=== PATIENT | female | born 1955 | race Caucasian/White ===

== ENCOUNTER 2016-12-15 12:36 | Day surgery (SDC) | payer OTHER ==
[~2016-12-15] VITALS: Ht 177.8 cm; Wt 136.1 kg
[~2016-12-15 12:36] MED LIST: AMOX/K CLAV875 M1 PO; ASPIRIN LOW DOS81 M2 PO; BENZONATATE200 MG PO; BLOOD GLUCOSE TEST S XX; CLINDAMYCIN300 M1 PO; DIAZEPAM5 M1 PO; FLEXERIL OR; FLEXERIL PO; FLUARIX QUADRIV1 INJ IM; FLUZONE SPLT1 M1 IM; GLIPIZIDE5 M2 PO; GLIPIZIDE5 MG PO; KAYEXALATE15 GM/60 M PO; LEVAQUIN500 MG PO; LEVOTHYROXIN150 MC1 PO; LISINOPRIL2.5 MG PO; LOPRESSOR12.5 MG PO; LORTAB 5 OR; MELOXICAM7.5 MG PO; METFORMIN500 MG PO; METOPROL TAR25 MG PO; METOPROLOL25 MG PO; MUPIROCIN2 % EX; NAPROSYN500 MG PO; NEURONTIN300 MG PO; NO HOME MEDS; NYQUI2 PO; OMEPRAZOLE20 MG PO; OXY1; PREDNISONE20 MG PO; PREVACID30 M2 PO; PRILOSEC40 MG PO; PROAIR HFA IN; PROTONIX40 M2 PO; RELION ULTIMA B1 KIT XX; SYMBICORT1 AE1 IN; TESSALON PER100 MG PO; TORADOL30 MG/VIAL IJ; TYLENOL 500MG TAB PO; TYLOPHEN500 MG PO; ULTRAM50 M1 OR; VALIUM5 MG PO; VISTARIL50 MG PO
[2016-12-15 15:28] VITALS: BP 119/61
== END 2016-12-15 15:20 | disposition home or self-care (01) | DRG 379 ==
LOC: ENDO 12:36 → ORM 15:30 → ENDO 16:00 → ORM 16:00 → ENDO 16:10
PROVIDERS: ATTEND Internal Medicine Gastroenterology
PROC: 0DBN8ZX Excision of Sigmoid Colon, Via Natural or Artificial Opening Endoscopic, Diagnostic (ICD-10-PCS; principal; 2016-12-15)
PROC: 0DBP8ZX Excision of Rectum, Via Natural or Artificial Opening Endoscopic, Diagnostic (ICD-10-PCS; 2016-12-15)
DX: K62.5 Hemorrhage of anus and rectum (principal); Z99.81 Dependence on supplemental oxygen; K21.9 Gastro-esophageal reflux disease without esophagitis; K64.4 Residual hemorrhoidal skin tags; K57.30 Diverticulosis of large intestine without perforation or abscess without bleeding; K64.8 Other hemorrhoids; K63.5 Polyp of colon; K62.1 Rectal polyp; F17.210 Nicotine dependence, cigarettes, uncomplicated; E78.00 Pure hypercholesterolemia, unspecified; J44.9 Chronic obstructive pulmonary disease, unspecified; E66.9 Obesity, unspecified; I10 Essential (primary) hypertension; E11.9 Type 2 diabetes mellitus without complications; Z86.73 Personal history of transient ischemic attack (TIA), and cerebral infarction without residual deficits

== ENCOUNTER 2017-12-12 15:10 | Emergency (ER) | payer OTHER ==
[~2017-12-12] VITALS: Ht 177.8 cm; Wt 110.0 kg
[2017-12-12 15:37] LABS: HEMATOCRIT 44.8 % (37.0-47.0); HEMOGLOBIN 12.9 g/dl (12.0-16.0); IMMATURE GRANULOCYTES 0.5 % (0.0-1.0); MEAN CELL VOLUME 87.2 fL CALC (80.0-100.0); MEAN CORPUSCULAR HGB 25.1 pG CALC (26.0-32.0); MEAN CORPUSCULAR HGB CONC 28.8 g/L CALC (32.0-36.0); NEUT# 15.54 thou/uL (2.00-7.15); RED BLOOD COUNT 5.14 mill/uL (4.20-5.60); RED CELL DISTRI WIDTH 15.7 % (11.5-15.5)
[2017-12-12 15:50] LABS: BUN 41 mg/dL (7-17); BUN/CREATININE RATIO 67 (12-20 (CALC)); CARBON DIOXIDE 39 mmol/l (22-30); CHLORIDE 93 mmol/l (95-108); CPK 510 u/l (30-165); CREATININE 0.6 mg/dL (0.5-1.0); GFR > 60 ML/MIN (>=60 (CALC)); GFR FOR AFR.AMER. > 60 ML/MIN (>=60 (CALC)); SODIUM 142 mmol/l (137-146)
[2017-12-12 15:55] LABS: ANION GAP 14 (6-22 (CALC)); POTASSIUM 3.7 mmol/l (3.5-5.1)
--- NOTE | 2017-12-12 18:50 | NUR ---
PATIIENT RECEIVED ON VENTILATOR WITH THE FOLLOWING SETTING. AC 20, 500 VT, 50% FIO2 AND PEEP OF 5. INTUBATED WITH A # 8 ETT, AT 23 CM OF THE LIPS. SPO2 94%, HEART RATE 99 RATE OF 20. WILL CINTINUE TO MONITOR THE PATIENT.
[2017-12-12 20:07] VITALS: BP 98/55
[2017-12-12 20:09] LABS: URINE BLOOD DIPSTICK NEGATIVE (NEGATIVE); URINE COLOR YELLOW; URINE GLUCOSE - DIPSTICK NEGATIVE (NEGATIVE); URINE KETONE NEGATIVE (NEGATIVE); URINE LEUK ESTERASE NEGATIVE (NEGATIVE); URINE NITRITE - DIPSTICK NEGATIVE (Negative); URINE PH 5.5 (4.5-8.0); URINE PROTEIN - DIPSTICK NEGATIVE (NEG-TRACE); URINE SPECIFIC GRAVITY 1.025; URINE UROBILINOGEN - DIPSTICK 0.2 E.U./dL (0.2)
[2017-12-12 20:11] LABS: URINE BILIRUBIN - DIPSTICK NEGATIVE (NEGATIVE); URINE CLARITY CLOUDY
== END 2017-12-12 20:08 | disposition short-term general hospital (02) | DRG 281 ==
LOC: ED 15:10
PROVIDERS: Family Medicine
PROC: 0T9B70Z Drainage of Bladder with Drainage Device, Via Natural or Artificial Opening (ICD-10-PCS; principal; 2017-12-12)
PROC: 5A1935Z Respiratory Ventilation, Less than 24 Consecutive Hours (ICD-10-PCS; 2017-12-12)
PROC: 02HV33Z Insertion of Infusion Device into Superior Vena Cava, Percutaneous Approach (ICD-10-PCS; 2017-12-12)
PROC: 0BH17EZ Insertion of Endotracheal Airway into Trachea, Via Natural or Artificial Opening (ICD-10-PCS; 2017-12-12)
DX: I21.4 Non-ST elevation (NSTEMI) myocardial infarction (principal); J44.1 Chronic obstructive pulmonary disease with (acute) exacerbation; R41.82 Altered mental status, unspecified; I10 Essential (primary) hypertension; F17.210 Nicotine dependence, cigarettes, uncomplicated; Z99.81 Dependence on supplemental oxygen

== ENCOUNTER 2017-12-29 12:36 | Emergency (ER) | payer OTHER ==
[~2017-12-29] VITALS: Ht 177.8 cm; Wt 127.3 kg
[2017-12-29 13:13] LABS: HEMOGLOBIN 11.3 g/dl (12.0-16.0); IMMATURE GRANULOCYTES 0.5 % (0.0-1.0); MEAN CELL VOLUME 86.8 fL CALC (80.0-100.0); MEAN CORPUSCULAR HGB 25.3 pG CALC (26.0-32.0); MEAN CORPUSCULAR HGB CONC 29.2 g/L CALC (32.0-36.0); NEUT# 5.94 thou/uL (2.00-7.15); RED BLOOD COUNT 4.46 mill/uL (4.20-5.60); RED CELL DISTRI WIDTH 17.2 % (11.5-15.5)
[2017-12-29 13:17] LABS: HEMATOCRIT 38.7 % (37.0-47.0)
[2017-12-29 13:33] LABS: ALBUMIN 3.5 g/dL (3.2-5.0); ALKALINE PHOSPHATASE 76 u/l (38-126); ANION GAP 11 (6-22 (CALC)); BILIRUBIN, TOTAL 0.5 mg/dL (0.0-1.4); BUN 9 mg/dL (7-17); BUN/CREATININE RATIO 15 (12-20 (CALC)); CARBON DIOXIDE 39 mmol/l (22-30); CHLORIDE 94 mmol/l (95-108); CREATININE 0.6 mg/dL (0.5-1.0); GFR > 60 ML/MIN (>=60 (CALC)); GFR FOR AFR.AMER. > 60 ML/MIN (>=60 (CALC)); LIPASE 11 u/l (23-300); POTASSIUM 3.2 mmol/l (3.5-5.1); SGOT/AST 16 u/l (14-36); SGPT/ALT 37 u/l (9-52); SODIUM 141 mmol/l (137-146); TOTAL PROTEIN 6.7 g/dL (6.3-8.2)
[2017-12-29 13:35] LABS: PROTHROMBIN TIME 10.7 SECONDS (9.0-12.5)
[2017-12-29] MEDS ORDERED: GABAPENTIN100 MG PO (14:02)
[2017-12-29] MEDS ORDERED: PANTOPRAZOLE SO40 MG PO (14:05)
[2017-12-29] MEDS ORDERED: PROTONIX40 MG PO (14:29)
[2017-12-29 15:04] VITALS: BP 139/72
== END 2017-12-29 15:06 | disposition home or self-care (01) | DRG 392 ==
LOC: ED 12:36
PROVIDERS: Emergency Medicine
DX: R10.13 Epigastric pain (principal); E11.9 Type 2 diabetes mellitus without complications; I10 Essential (primary) hypertension; J44.9 Chronic obstructive pulmonary disease, unspecified; F17.210 Nicotine dependence, cigarettes, uncomplicated; Z99.81 Dependence on supplemental oxygen; R07.9 Chest pain, unspecified

== ENCOUNTER 2018-01-04 11:52 | Inpatient (IN) | payer OTHER ==
[2018-01-04] VITALS (9 sets, daily range): BP systolic 109–126; BP diastolic 63–76
[~2018-01-04] VITALS: Ht 175.3 cm; Wt 114.0 kg
[~2018-01-04 11:52] MED LIST changes: +GABAPENTIN100 MG PO; +PANTOPRAZOLE SO40 MG PO; +PROTONIX40 MG PO
[2018-01-04 12:22] LABS: HEMATOCRIT 38.1 % (37.0-47.0); HEMOGLOBIN 11.2 g/dl (12.0-16.0); IMMATURE GRANULOCYTES 2.6 % (0.0-1.0); MEAN CELL VOLUME 87.8 fL CALC (80.0-100.0); MEAN CORPUSCULAR HGB 25.8 pG CALC (26.0-32.0); MEAN CORPUSCULAR HGB CONC 29.4 g/L CALC (32.0-36.0); NEUT# 10.11 thou/uL (2.00-7.15); RED BLOOD COUNT 4.34 mill/uL (4.20-5.60); RED CELL DISTRI WIDTH 19.9 % (11.5-15.5)
[2018-01-04 12:28] LABS: ALBUMIN 3.5 g/dL (3.2-5.0); ALKALINE PHOSPHATASE 101 u/l (38-126); ANION GAP 14 (6-22 (CALC)); BILIRUBIN, TOTAL 0.8 mg/dL (0.0-1.4); BUN 22 mg/dL (7-17); BUN/CREATININE RATIO 29 (12-20 (CALC)); CARBON DIOXIDE 39 mmol/l (22-30); CHLORIDE 90 mmol/l (95-108); CREATININE 0.8 mg/dL (0.5-1.0); GFR > 60 ML/MIN (>=60 (CALC)); GFR FOR AFR.AMER. > 60 ML/MIN (>=60 (CALC)); POTASSIUM 3.8 mmol/l (3.5-5.1); SGPT/ALT 332 u/l (9-52); SODIUM 139 mmol/l (137-146); TOTAL PROTEIN 6.5 g/dL (6.3-8.2)
[2018-01-04 12:31] LABS: SGOT/AST 488 u/l (14-36)
[2018-01-04 13:54] LABS: URINE BLOOD DIPSTICK TRACE-INTACT (NEGATIVE); URINE COLOR YELLOW; URINE GLUCOSE - DIPSTICK 250 mg/dL (NEGATIVE); URINE KETONE NEGATIVE (NEGATIVE); URINE LEUK ESTERASE NEGATIVE (NEGATIVE); URINE NITRITE - DIPSTICK NEGATIVE (Negative); URINE PROTEIN - DIPSTICK 100 mg/dL (NEG-TRACE); URINE SPECIFIC GRAVITY >=1.030
[2018-01-04 13:55] LABS: URINE BILIRUBIN - DIPSTICK SMALL (NEGATIVE); URINE CLARITY CLEAR; URINE EPITHELIAL CELLS MODERATE EPI/hpf (0-FEW); URINE MUCUS FEW hpf (NONE-FEW); URINE RBC 0-2 RBC/hpf (0-5)
[2018-01-04] MEDS ORDERED: METO25TAB PO (14:32)
[2018-01-04] MEDS ORDERED: GABAPENTIN100 MG PO (14:33)
[2018-01-04] MEDS ORDERED: LISINOPRIL2.5 MG PO (14:33)
[2018-01-04] MEDS ORDERED: METFORMIN500 MG PO (14:33)
[2018-01-04] MEDS ORDERED: GLIPIZIDE5 MG PO ×2 (14:34)
[2018-01-04] MEDS ORDERED: PROAIR HFA108 MCG/AC (14:34)
[2018-01-04] MEDS ORDERED: SYMBICORT1 AE1 IN (14:35)
[2018-01-05] VITALS (9 sets, daily range): BP systolic 109–132; BP diastolic 60–77
[2018-01-05 05:14] LABS: HEMATOCRIT 36.9 % (37.0-47.0); HEMOGLOBIN 10.8 g/dl (12.0-16.0); IMMATURE GRANULOCYTES 2.9 % (0.0-1.0); MEAN CELL VOLUME 88.7 fL CALC (80.0-100.0); MEAN CORPUSCULAR HGB CONC 29.3 g/L CALC (32.0-36.0); NEUT# 10.96 thou/uL (2.00-7.15); RED BLOOD COUNT 4.16 mill/uL (4.20-5.60); RED CELL DISTRI WIDTH 19.9 % (11.5-15.5)
[2018-01-05 05:33] LABS: ALBUMIN 3.2 g/dL (3.2-5.0); ALKALINE PHOSPHATASE 94 u/l (38-126); BILIRUBIN, TOTAL 0.9 mg/dL (0.0-1.4); BUN 23 mg/dL (7-17); BUN/CREATININE RATIO 31 (12-20 (CALC)); CHLORIDE 88 mmol/l (95-108); CREATININE 0.7 mg/dL (0.5-1.0); GFR > 60 ML/MIN (>=60 (CALC)); GFR FOR AFR.AMER. > 60 ML/MIN (>=60 (CALC)); SGOT/AST 165 u/l (14-36); SGPT/ALT 245 u/l (9-52); SODIUM 139 mmol/l (137-146); TOTAL PROTEIN 6.1 g/dL (6.3-8.2)
[2018-01-05 05:38] LABS: ANION GAP 16 (6-22 (CALC)); CARBON DIOXIDE 39 mmol/l (22-30)
[2018-01-06 00:10] VITALS: BP 133/77
[2018-01-06 04:30] VITALS: BP 137/82; BP 154/86
[2018-01-06 05:16] LABS: ALBUMIN 3.2 g/dL (3.2-5.0); ALKALINE PHOSPHATASE 88 u/l (38-126); BILIRUBIN, TOTAL 0.4 mg/dL (0.0-1.4); BUN 27 mg/dL (7-17); BUN/CREATININE RATIO 37 (12-20 (CALC)); CHLORIDE 85 mmol/l (95-108); CREATININE 0.7 mg/dL (0.5-1.0); GFR > 60 ML/MIN (>=60 (CALC)); GFR FOR AFR.AMER. > 60 ML/MIN (>=60 (CALC)); MAGNESIUM 2.2 mg/dL (1.6-2.3); POTASSIUM 3.6 mmol/l (3.5-5.1); SGOT/AST 68 u/l (14-36); SGPT/ALT 215 u/l (9-52); SODIUM 136 mmol/l (137-146); TOTAL PROTEIN 6.1 g/dL (6.3-8.2)
[2018-01-06 05:22] LABS: ANION GAP 16 (6-22 (CALC)); CARBON DIOXIDE 39 mmol/l (22-30)
[2018-01-06 05:57] LABS: HEMATOCRIT 35.1 % (37.0-47.0); HEMOGLOBIN 10.5 g/dl (12.0-16.0); MEAN CELL VOLUME 87.5 fL CALC (80.0-100.0); MEAN CORPUSCULAR HGB 26.2 pG CALC (26.0-32.0); MEAN CORPUSCULAR HGB CONC 29.9 g/L CALC (32.0-36.0); RED BLOOD COUNT 4.01 mill/uL (4.20-5.60); RED CELL DISTRI WIDTH 19.6 % (11.5-15.5)
[2018-01-06 08:11] VITALS: BP 124/64
[2018-01-06 11:17] VITALS: BP 127/65
[2018-01-06 15:47] VITALS: BP 121/73
[2018-01-06 19:00] VITALS: BP 114/67
[2018-01-07 00:04] VITALS: BP 133/74
[2018-01-07 04:57] VITALS: BP 133/76
[2018-01-07 05:12] LABS: HEMATOCRIT 34.3 % (37.0-47.0); HEMOGLOBIN 10.4 g/dl (12.0-16.0); IMMATURE GRANULOCYTES 0.8 % (0.0-1.0); MEAN CELL VOLUME 86.6 fL CALC (80.0-100.0); MEAN CORPUSCULAR HGB 26.3 pG CALC (26.0-32.0); MEAN CORPUSCULAR HGB CONC 30.3 g/L CALC (32.0-36.0); NEUT# 7.73 thou/uL (2.00-7.15); RED BLOOD COUNT 3.96 mill/uL (4.20-5.60); RED CELL DISTRI WIDTH 19.7 % (11.5-15.5)
[2018-01-07 05:24] LABS: ALBUMIN 3.1 g/dL (3.2-5.0); ALKALINE PHOSPHATASE 81 u/l (38-126); ANION GAP 12 (6-22 (CALC)); BILIRUBIN, TOTAL 0.8 mg/dL (0.0-1.4); BUN 26 mg/dL (7-17); BUN/CREATININE RATIO 37 (12-20 (CALC)); CARBON DIOXIDE 39 mmol/l (22-30); CHLORIDE 87 mmol/l (95-108); CREATININE 0.7 mg/dL (0.5-1.0); GFR > 60 ML/MIN (>=60 (CALC)); GFR FOR AFR.AMER. > 60 ML/MIN (>=60 (CALC)); MAGNESIUM 2.2 mg/dL (1.6-2.3); POTASSIUM 3.9 mmol/l (3.5-5.1); SGOT/AST 56 u/l (14-36); SGPT/ALT 190 u/l (9-52); SODIUM 134 mmol/l (137-146)
[2018-01-07 08:25] VITALS: BP 147/83
[2018-01-07] MEDS ORDERED: PREDNISONE10 MG PO (10:59)
[2018-01-07] MEDS ORDERED: ZPAK PO (10:59)
== END 2018-01-07 12:20 | disposition home or self-care (01) | DRG 189 ==
LOC: ED 11:52 → ED-I 15:40 → ED 15:56 → ICU 15:57 → MS2 01-05 12:52
PROVIDERS: Family Medicine; ADMIT Internal Medicine; ATTEND Internal Medicine
PROC: 5A09357 Assistance with Respiratory Ventilation, Less than 24 Consecutive Hours, Continuous Positive Airway Pressure (ICD-10-PCS; principal; 2018-01-04)
DX: J96.21 Acute and chronic respiratory failure with hypoxia (principal); E87.3 Alkalosis; E11.49 Type 2 diabetes mellitus with other diabetic neurological complication; E11.65 Type 2 diabetes mellitus with hyperglycemia; J44.1 Chronic obstructive pulmonary disease with (acute) exacerbation; J96.22 Acute and chronic respiratory failure with hypercapnia; Z99.81 Dependence on supplemental oxygen; E66.01 Morbid (severe) obesity due to excess calories; I10 Essential (primary) hypertension; F17.210 Nicotine dependence, cigarettes, uncomplicated; E03.9 Hypothyroidism, unspecified; G89.4 Chronic pain syndrome; E86.9 Volume depletion, unspecified; R74.8 Abnormal levels of other serum enzymes; T38.0X5A Adverse effect of glucocorticoids and synthetic analogues, initial encounter; G47.30 Sleep apnea, unspecified; Z91.19 Patient's noncompliance with other medical treatment and regimen; Z68.37 Body mass index [BMI] 37.0-37.9, adult; Z79.84 Long term (current) use of oral hypoglycemic drugs

== ENCOUNTER 2018-01-18 18:14 | Observation (INO) | payer OTHER ==
[~2018-01-18] VITALS: Ht 175.3 cm; Wt 127.0 kg
[~2018-01-18 18:14] MED LIST changes: +METO25TAB PO; +PREDNISONE10 MG PO; +PROAIR HFA108 MCG/AC; +ZPAK PO
--- NOTE | 2018-01-18 18:14 | NUR ---
PT TO ROOM 10 VIA EMS.
[2018-01-18 18:44] LABS: IMMATURE GRANULOCYTES 1.6 % (0.0-1.0); MEAN CELL VOLUME 87.9 fL CALC (80.0-100.0); MEAN CORPUSCULAR HGB CONC 29.6 g/L CALC (32.0-36.0); NEUT# 9.95 thou/uL (2.00-7.15); RED BLOOD COUNT 4.62 mill/uL (4.20-5.60); RED CELL DISTRI WIDTH 19.9 % (11.5-15.5)
[2018-01-18 18:46] LABS: HEMATOCRIT 40.6 % (37.0-47.0)
--- NOTE | 2018-01-18 18:50 | NUR ---
AALIYAH COMPLETED. IMPROVIDED AIRWAY. SATS 94 ON 3L/M VIA NC. RESP EVEN UNLABORED
[2018-01-18 18:54] LABS: ANION GAP 12 (6-22 (CALC)); BUN 12 mg/dL (7-17); BUN/CREATININE RATIO 28 (12-20 (CALC)); CARBON DIOXIDE 35 mmol/l (22-30); CHLORIDE 92 mmol/l (95-108); CREATININE 0.4 mg/dL (0.5-1.0); GFR > 60 ML/MIN (>=60 (CALC)); GFR FOR AFR.AMER. > 60 ML/MIN (>=60 (CALC)); POTASSIUM 4.2 mmol/l (3.5-5.1); SODIUM 135 mmol/l (137-146)
--- NOTE | 2018-01-18 19:09 | NUR ---
REPORT PROVIDED TO EASTON FRANCISCO.
--- NOTE | 2018-01-18 19:22 | NUR ---
IVF, STARTED PER MD ORDER.
--- NOTE | 2018-01-18 19:28 | NUR ---
MD IN ROOM TO DISCUSS CLINICAL FINDINGS WITH PT. AND ALSO MAKE HER AWARE OF ADMISSION, VERBALIZED UNDERSTANDING.
--- NOTE | 2018-01-18 19:53 | NUR ---
Admission Note Report Given to: TYLER MOORE Transported by: Wheelchair X Stretcher Transported with: X Nurse Transporter X Patent IV X O2 X Chain Mortiser Operator
--- NOTE | 2018-01-18 19:54 | NUR ---
[place]. [place] [facility] [place]
--- NOTE | 2018-01-18 20:00 | NUR ---
PT ARRIVED TO FLOOR VIA STRETCHER WITH ER STAFF. PT AMBULATED TO SCALE, THEN TO BED. VITAL SIGNS OBTAINED. PT ORIENTED TO ROOM AND CALL LIGHT SYSTEM. RESP EVEN AND UNLABORED WITH O2 IN PLACE. TELE IN PLACE. LUNGS CLEAR/ DIMINISHED BILAT. ABD SOFT, ACTIVE BOWEL SOUNDS. +2 EDEMA LEGS BILAT; PT ENCOURAGED TO ELEVATE. PEDAL PULSES PALPATED BILAT. IV RAC PATENT; NO REDNESS OR EDEMA NOTED. PT DENIES PAIN OR DISCOMFORT. SAFETY PRECAUTIONS REINFORCED; FREQUENT ROUNDS MADE. CALL LIGHT WITHIN REACH.
[2018-01-18 20:20] VITALS: BP 149/97
[2018-01-18 23:30] VITALS: BP 144/88
--- NOTE | 2018-01-19 | NUR ---
RESP EVEN AND UNLABORED WITH O2 IN PLACE. TELE IN PLACE. IV PATENT; NO REDNESS OR EDEMA NOTED. CALL LIGHT WITHIN REACH.
--- NOTE | 2018-01-19 04:02 | NUR ---
ASSESSMENT UNCHANGED; RESP EVEN AND UNLABORED WITH O2 IN PLACE. TELE IN PLACE. IV PATENT; NO REDNESS OR EDEMA NOTED. CALL LIGHT WITHIN REACH.
[2018-01-19 05:00] VITALS: BP 139/78
[2018-01-19 05:35] LABS: HEMOGLOBIN 12.4 g/dl (12.0-16.0); MEAN CELL VOLUME 89.4 fL CALC (80.0-100.0); MEAN CORPUSCULAR HGB 26.4 pG CALC (26.0-32.0); MEAN CORPUSCULAR HGB CONC 29.5 g/L CALC (32.0-36.0); RED BLOOD COUNT 4.7 mill/uL (4.20-5.60); RED CELL DISTRI WIDTH 19.3 % (11.5-15.5)
[2018-01-19 05:51] LABS: ANION GAP 15 (6-22 (CALC)); BUN 13 mg/dL (7-17); BUN/CREATININE RATIO 28 (12-20 (CALC)); CARBON DIOXIDE 33 mmol/l (22-30); CHLORIDE 96 mmol/l (95-108); CREATININE 0.5 mg/dL (0.5-1.0); GFR > 60 ML/MIN (>=60 (CALC)); GFR FOR AFR.AMER. > 60 ML/MIN (>=60 (CALC)); POTASSIUM 4.9 mmol/l (3.5-5.1); SODIUM 138 mmol/l (137-146)
--- NOTE | 2018-01-19 07:00 | NUR ---
BEDSIDE REPORT RECEIVED BY KARELY. PT IS RESTING IN BED WITH NO S/S OF DISTRESS NOTED. PT DENIES NEEDS AT THIS TIME. CALL LIGHT IN REACH.
[2018-01-19 07:26] VITALS: BP 122/77
--- NOTE | 2018-01-19 08:00 | NUR ---
PT IS SITTING IN THE SIDE OF THE BED. ASSESSMENT DONE TELE IN PLACE. LUNG SOUND CLEAR/DIMINISHED. O2 AT 3L/MIN VIA NC. SAFETY PRECAUTIONS REINFORCED AND CALL LIGHT IN REACH.
[2018-01-19 09:07] LABS: URINE BILIRUBIN - DIPSTICK NEGATIVE (NEGATIVE); URINE BLOOD DIPSTICK NEGATIVE (NEGATIVE); URINE COLOR YELLOW; URINE GLUCOSE - DIPSTICK >=1000 mg/dL (NEGATIVE); URINE KETONE TRACE mg/dL (NEGATIVE); URINE LEUK ESTERASE NEGATIVE (NEGATIVE); URINE NITRITE - DIPSTICK NEGATIVE (Negative); URINE PH 5.5 (4.5-8.0); URINE PROTEIN - DIPSTICK NEGATIVE (NEG-TRACE); URINE UROBILINOGEN - DIPSTICK 0.2 E.U./dL (0.2)
[2018-01-19 09:08] LABS: URINE CLARITY CLEAR
--- NOTE | 2018-01-19 10:53 | NUR ---
MEDICATED PT WITH LORTAB FOR PAIN SEE EMAR. PT DENIES ANY OTHER NEEDS AT THIS TIME. CALL LIGHT IN REACH.
--- NOTE | 2018-01-19 12:00 | NUR ---
PT IS EATING HER LUNCH WITH NO S/S OF DISTRESS NOTED. PT DENIES NEEDS AT THIS TIME. CALL LIGHT IN REACH.
[2018-01-19 12:35] VITALS: BP 94/58
--- NOTE | 2018-01-19 16:00 | NUR ---
PT IS RESTING IN BED WITH NO S/S OF DISTRESS NOTED. PT DENIES NEEDS AT THIS TIME. CALL LIGHT IN REACH.
[2018-01-19 16:19] VITALS: BP 110/71
--- NOTE | 2018-01-19 19:51 | NUR ---
PT RESTING IN BED WATCHING TV. PT DENIES ANY PAIN. RESP EVEN AND UNLABORED WITH O2 IN PLACE. TELE IN PLACE. LUNGS CLEAR/DIMINISHED BILAT. ABD SOFT; ACTIVE BOWEL SOUNDS. +2 EDEMA LEGS BILAT; PT ENCOURAGED TO ELEVATE. PEDAL PULSES PALPATED BILAT. IV RAC PATENT; NO REDNESS OR EDEMA NOTED. SAFETY PRECAUTIONS REINFORCED; FREQUENT ROUNDS MADE. CALL LIGHT WITHIN REACH.
[2018-01-19 20:05] VITALS: BP 124/71
--- NOTE | 2018-01-19 20:40 | NUR ---
ACCUCHECK DONE; ACCUCHECK READS "CRITICAL LEVEL". DR CARMONA NOTIFIED. NEW ORDERS; CHEM 7 STAT, 15 UNITS NOVOLOG X1 NOW. PT DENIES ANY PAIN OR DISCOMFORT. RESP EVEN AND UNLABORED WITH O2 IN PLACE. CALL LIGHT WITHIN REACH.
[2018-01-19 21:54] LABS: ANION GAP 17 (6-22 (CALC)); BUN 17 mg/dL (7-17); BUN/CREATININE RATIO 28 (12-20 (CALC)); CARBON DIOXIDE 27 mmol/l (22-30); CHLORIDE 93 mmol/l (95-108); CREATININE 0.6 mg/dL (0.5-1.0); GFR > 60 ML/MIN (>=60 (CALC)); GFR FOR AFR.AMER. > 60 ML/MIN (>=60 (CALC)); POTASSIUM 4.9 mmol/l (3.5-5.1); SODIUM 132 mmol/l (137-146)
--- NOTE | 2018-01-19 23:54 | NUR ---
ACCUCHECK; 359. PT RESTING IN BED, DENIES ANY ANY PAIN. RESP EVEN AND UNLABORED WITH O2 IN PLACE. IV PATENT; NO REDNESS OR EDEMA NOTED. TELE IN PLACE. CALL LIGHT WITHIN REACH.
[2018-01-19 23:55] VITALS: BP 113/69
--- NOTE | 2018-01-20 04:30 | NUR ---
ASSESSMENT UNCHANGED; RESP EVEN AND UNLABORED WITH O2 IN PLACE. TELE IN PALCE. IV PATENT; NO REDNESS OR EDEMA NOTED. CALL LIGHT WITHIN REACH.
[2018-01-20 05:10] VITALS: BP 122/81
[2018-01-20 05:16] LABS: ANION GAP 14 (6-22 (CALC)); BUN 15 mg/dL (7-17); BUN/CREATININE RATIO 28 (12-20 (CALC)); CARBON DIOXIDE 30 mmol/l (22-30); CHLORIDE 96 mmol/l (95-108); CREATININE 0.5 mg/dL (0.5-1.0); GFR > 60 ML/MIN (>=60 (CALC)); GFR FOR AFR.AMER. > 60 ML/MIN (>=60 (CALC)); POTASSIUM 4.9 mmol/l (3.5-5.1); SODIUM 135 mmol/l (137-146)
[2018-01-20 05:26] LABS: HEMATOCRIT 36.6 % (37.0-47.0); HEMOGLOBIN 10.7 g/dl (12.0-16.0); MEAN CELL VOLUME 90.4 fL CALC (80.0-100.0); MEAN CORPUSCULAR HGB 26.4 pG CALC (26.0-32.0); MEAN CORPUSCULAR HGB CONC 29.2 g/L CALC (32.0-36.0); RED BLOOD COUNT 4.05 mill/uL (4.20-5.60); RED CELL DISTRI WIDTH 19.6 % (11.5-15.5)
--- NOTE | 2018-01-20 07:00 | NUR ---
BEDSIDE REPORT RECEIVED BY KARELY. PT IS SLEEPING WITH NO S/S OF DISTRESS NOTED AND CALL LIGHT IN REACH.
[2018-01-20 07:23] VITALS: BP 125/77
--- NOTE | 2018-01-20 07:59 | NUR ---
ASSESSMENT DONE AND TELE IN PLACE. O2 AT 3L VIA NC. LUNG SOUND CLEAR/DIMINISHED. MEDICATED PT WITH LORTAB FOR PAIN SEE EMAR. SAFETY PRECAUTIONS REINFORCED AND CALL LIGHT IN REACH.
[2018-01-20] MEDS ORDERED: LEVAQUIN750 MG PO (10:56)
[2018-01-20] MEDS ORDERED: PREDNISONE10 MG PO (10:56)
[2018-01-20 11:48] VITALS: BP 107/57
--- NOTE | 2018-01-20 12:15 | NUR ---
Discharge instructions given. Patient verbalizes understanding of same.
--- NOTE | 2018-01-20 14:30 | NUR ---
Discharged in stable condition via Wheelchair to Home with staff. All belongings sent with pt.
== END 2018-01-20 14:30 | disposition home or self-care (01) | DRG 190 ==
LOC: ED 18:14 → ED-I 18:40 → ED 18:40 → ED-I 19:00 → ED 19:35 → MS2 19:36
PROVIDERS: Family Medicine; ADMIT Internal Medicine; ATTEND Internal Medicine
DX: J44.1 Chronic obstructive pulmonary disease with (acute) exacerbation (principal); J96.22 Acute and chronic respiratory failure with hypercapnia; J96.21 Acute and chronic respiratory failure with hypoxia; E11.49 Type 2 diabetes mellitus with other diabetic neurological complication; E87.2 Acidosis; Z99.81 Dependence on supplemental oxygen; I10 Essential (primary) hypertension; F17.210 Nicotine dependence, cigarettes, uncomplicated; G47.33 Obstructive sleep apnea (adult) (pediatric); F14.10 Cocaine abuse, uncomplicated; G89.4 Chronic pain syndrome; E11.65 Type 2 diabetes mellitus with hyperglycemia; E66.01 Morbid (severe) obesity due to excess calories; T38.0X5A Adverse effect of glucocorticoids and synthetic analogues, initial encounter; Z91.19 Patient's noncompliance with other medical treatment and regimen; Z79.84 Long term (current) use of oral hypoglycemic drugs
CPT/HCPCS: G0378

== ENCOUNTER 2018-02-08 08:00 | Inpatient (IN) | payer OTHER ==
[2018-02-08] VITALS (12 sets, daily range): BP systolic 127–150; BP diastolic 69–84
[~2018-02-08] VITALS: Ht 175.3 cm; Wt 112.5 kg
[~2018-02-08 08:00] MED LIST changes: +GABAPENTIN300 M2 PO; +GLIPIZIDE10 MG PO; +LEVAQUIN750 MG PO
--- NOTE | 2018-02-08 08:00 | NUR ---
PT TO ROOM VIA EMS STRETCHER ON NON REBREATHERM SAO2 100%.
--- NOTE | 2018-02-08 08:15 | NUR ---
IV ACCESS OBTAINED, R.T. AT BEDSIDE PLACING PT ON BIPAP
--- NOTE | 2018-02-08 08:32 | NUR ---
PT ON BIPAP R.T. AT BEDSIDE
--- NOTE | 2018-02-08 08:39 | NUR ---
ATTEMPTED TO RECONCILE MEDS PT DROWSY AND ANSWERS QUESTIONS INAPPROPRIATELY, WILL ATTEMPT TO CALL [facility] WHEN OPEN TO RECONCILE BASED ON REFILL INFORMATION.
--- NOTE | 2018-02-08 08:44 | NUR ---
AWARE OF SATS 87% WITH FiO2 AT 30%, R.T. CALLED
--- NOTE | 2018-02-08 08:59 | NUR ---
RT AT BEDSIDE BI PAP CHANGED TO 40% FiO2
[2018-02-08 09:04] LABS: IMMATURE GRANULOCYTES 3.3 % (0.0-1.0); MEAN CELL VOLUME 90.2 fL CALC (80.0-100.0); MEAN CORPUSCULAR HGB CONC 29.9 g/L CALC (32.0-36.0); NEUT# 10.2 thou/uL (2.00-7.15); RED BLOOD COUNT 4.78 mill/uL (4.20-5.60)
[2018-02-08 09:05] LABS: HEMATOCRIT 43.1 % (37.0-47.0); HEMOGLOBIN 12.9 g/dl (12.0-16.0)
[2018-02-08 09:24] LABS: ALBUMIN 3.8 g/dL (3.2-5.0); ALKALINE PHOSPHATASE 103 u/l (38-126); ANION GAP 16 (6-22 (CALC)); BILIRUBIN, TOTAL 0.5 mg/dL (0.0-1.4); BUN 14 mg/dL (7-17); BUN/CREATININE RATIO 29 (12-20 (CALC)); CARBON DIOXIDE 35 mmol/l (22-30); CHLORIDE 93 mmol/l (95-108); CREATININE 0.5 mg/dL (0.5-1.0); GFR > 60 ML/MIN (>=60 (CALC)); GFR FOR AFR.AMER. > 60 ML/MIN (>=60 (CALC)); POTASSIUM 4.9 mmol/l (3.5-5.1); SGOT/AST 17 u/l (14-36); SGPT/ALT 38 u/l (9-52); SODIUM 139 mmol/l (137-146); TOTAL PROTEIN 6.9 g/dL (6.3-8.2)
--- NOTE | 2018-02-08 10:41 | NUR ---
PT RESTING TOLERATING BI PAP W/O INCIDENT, CALL PURVIS WITHIN REACH
--- NOTE | 2018-02-08 11:24 | NUR ---
LASIX GIVEN ORDERED, BSC PLACED AT PT BEDSIDE
--- NOTE | 2018-02-08 11:46 | NUR ---
PT UP TO BSC WITH MOD/MAX ASSIST, TOLERATED WELL, CONTINENT OF 500 ML CELAR YELLOW URINE, MARIA T CARE PROVIDED PT HAS REDENED SCALY AREA TO COCCYX, WILL CONTINUE TO MONITOR.
--- NOTE | 2018-02-08 11:56 | NUR ---
PT CAME TO E.R. VIA EMS FOR COMPLAINTS OF SHORTNESS OF BREATH, ADMISSION ASSESSMENT COMPLETED SEE INTERVENTIONS, SKIN WARM AND DRY WITH SOME REDNESS/SCALINESS NOTED TO COCCYX, PT STATES SHE SITS A LOT AT HOME, INCONTINENT OF STOOL VIA EMS UPON ARRIVAL TO EMERGENCY ROOM THIS AM, IV ACCESS NOTED IN LEFT AC 20G WITH GOOD ASPIRAATE NOTED, PT HAS GENERALIZED EDEMA 1-2+ TO BILATERAL LE WITH SLIGHT REDNESS NOTED, PPPB, SOME EDEMA NOTED TO BUE R>L, ABD SOFT AND BS ACTIVE, SOME NAUSEA ON ARRIVAL TO ED BUT RESOLVED AT THIS TIME. TELE READIN ST RATE 100-120'S, B P STABLE AND PT AFEBRILE, LUNGS DIMINAHED SLIGHTLY COARSE IN BASES, BI PAP IN USE AT THIS TIME WITH 40% FiO2, SEE FLOWSHEET FOR COMPLETE SETTINGS, SAFETY MEASURES INTRODUCED, ALL MONITORING EQUIPMENT EXPLAINED PRIOR TO APPLICATION, CALL PURVIS WITHIN REACH.
--- NOTE | 2018-02-08 12:10 | NUR ---
PT OOB TO BSC WITH MOD ASSIST, CONTINENT OF CALER YELLOW URINE ASSISTED WITH MARIA T CARE AND BACK TO STRETCHER
--- NOTE | 2018-02-08 13:37 | NUR ---
PT DOZING, CONTINUES TO TOLERATE BI PAP, CALL PURVIS WITHIN REACH
--- NOTE | 2018-02-08 14:21 | NUR ---
PT REMAINS DOZING, CONTINUES TO TOLERATE BI PAP W/O INCIDENT,
--- NOTE | 2018-02-08 14:27 | NUR ---
PT OFF STRECTHER TO BSC, TOLERATES ACTIVITY WELL, CONTINENT OF CLEAR YELLOW URINE,. ASSISTED WITH MRAIA T CARE NAD BACK ON STRETCHER, CALL PURVIS WITHIN REACH
--- NOTE | 2018-02-08 15:13 | NUR ---
Admission Note Report Given to: LING SAGE NURSE THAT HAD PT IN ER Transported by: Wheelchair X Stretcher Transported with: X Nurse Transporter X Patent IV X O2 X Lead Warehouse Associate
--- NOTE | 2018-02-08 15:25 | NUR ---
female pt received to ICU bed 1 via wc accompained by volunteer and friends in stable condition; admission assessment completed at this time; pt sent per Dr Valero for CHF; alert and oriented; denies pain/ chest pain; denies palpitations/sob; pt denies n/v/diaphoresis; resp even and unlabored; lungs clear bilat; skin color wnl; ra; dry automotive electrician frequent cough noted; hr reg; strong pulses; no edema noted; paced/ underline sr-st on monitor; abd soft with bs present; no bm noted per keno writer; pt admits to voiding without complication; no urine to inspect at this time; plan of care/ meds/ orders explained; monitoring attachments explained and applied; pt oriented to bed and call light system; call light within reach; will continue to moniutor
--- NOTE | 2018-02-08 15:44 | NUR ---
PT ARRIVED TO ICU BED 1 WITH RT AND ON BIPAP. (ADMISSION ASSESS COMPLETED IN ER SEE NOTES IN ER RECORD) VIA STRECTHER, PT STOOD OFF STRETCHER AND TRASNFERRED TO BED WITH MOD ASSIST, TOLERATED ACTIVITY WELL, O2 PLACED AT 3L VIA NC HUMIDIFIED, PT IS ADMITTED SMOKER, AND WEARS O2 AT 3L AT HOME, EDUCATED REGARDING THE IMPORTANCE OF NOT SMOKING WHILE WEARING OXYGEN, PT NODS HEAD BUT DOES NOT RESPOND, PT HAS REDDENDED AREA TO COCCYX THAT IS BALNACHABLE AND DRY AND SCALY PT STATES IT ITCHES OCCASIONAL, WILL HAVE MD NOTE ON ROUNDS, OREINTED TO ROOM AND UNIT, ALL MONITORING EQUIPMENT EXPLAINED PRIOR TO APPLICATION, CALL PURVIS WITHIN REACH, WILL MONITOR CLOSELY
--- NOTE | 2018-02-08 16:15 | NUR ---
#22 started in lh x1 attempt; #22 started in lfa x1 attempt; labs obtained; iv's flushed and patent with good blood aspirate noted; medications explained; visitors x2 at bedside; call light within reach; will continue to monitor
--- NOTE | 2018-02-08 16:26 | NUR ---
pt with complaints of left sided chest pain; denies radiation; no n/v noted; no diaphoresis; paced on monitor; RT notified for EKG; Dr Delacruz notified of pt complaints/no additional orders received; will continue to monitor
--- NOTE | 2018-02-08 17:00 | NUR ---
up to bsc with staff assistance; pt with nausea/ no emesis noted; voiding clear yellow urine; iv's patent with dopamine and dobutamine gtt infusing as per orders/protocol; call light within reach; will continue to monitor
--- NOTE | 2018-02-08 17:30 | NUR ---
OOB TO BSC WITH MINIMAL ASSISTANCE, VOIDING 300ML CLEAR YELLOW URINE AND FORMED BROWN BM, MARIA T CARE PROVIDED THEN BACK TO BED. ACCUCHECK 304, 4UNITS OF NOVULOG INSULIN ADMINISTERED SQ, TOLERATED WELL. 1800ADA SHANNEN DIET PROVIDED FOR DINNER, EATING 100%. CALL LIGHT IN REACH. WILL CONTINUE TO MONITOR.
--- NOTE | 2018-02-08 18:25 | NUR ---
BIPAP APPLIED BY RT, DUE TO O2 SAT DOWN TO 84% ON 3L VIA NC. O2 SAT UP TO 91% WITH BIPAP FIO2 40%.
--- NOTE | 2018-02-08 21:48 | NUR ---
ACCUCHECK 450, DR. NORMAN NOTIFIED, NEW ORDER RECEIVED FOR ACCUCHECK AC/HS WITH HIGH DOSE SS. COVERED WITH 14UNITS OF NOVULOG PER SS, TOLERATED WELL.
[2018-02-08 22:02] LABS: URINE BILIRUBIN - DIPSTICK NEGATIVE (NEGATIVE); URINE BLOOD DIPSTICK NEGATIVE (NEGATIVE); URINE COLOR YELLOW; URINE GLUCOSE - DIPSTICK >=1000 mg/dL (NEGATIVE); URINE KETONE NEGATIVE (NEGATIVE); URINE LEUK ESTERASE TRACE (NEGATIVE); URINE NITRITE - DIPSTICK NEGATIVE (Negative); URINE PH 5.5 (4.5-8.0); URINE PROTEIN - DIPSTICK NEGATIVE (NEG-TRACE); URINE SPECIFIC GRAVITY <=1.005; URINE UROBILINOGEN - DIPSTICK 0.2 E.U./dL (0.2)
[2018-02-08 22:03] LABS: URINE CLARITY CLEAR
--- NOTE | 2018-02-08 23:00 | NUR ---
RESTING WITH EYES CLOSED, RESPIRATIONS EVEN AND UNLABORED ON BIPAP, FIO2 40%
[2018-02-09] VITALS (18 sets, daily range): BP systolic 110–140; BP diastolic 59–77
--- NOTE | 2018-02-09 01:30 | NUR ---
RESTING WITH EYES CLOSED, RESPIRATIONS EVEN AND UNLABORED ON BIPAP. O2 SAT 94%. CALL LIGHT IN REACH.
--- NOTE | 2018-02-09 04:40 | NUR ---
MORNING BLOODWORK DRAWN BY TECHNOLOGY DIRECTOR, TOLERATED WELL. BIPAP REMOVED, O2 @3L APPLIED, OOB TO BSC WITH MINIMAL ASSISTANCE, VOIDING 600ML CLOUDY YELLOW URINE, O2 SAT DOWN TO 87%, BACK TO BED, BIPAP REAPPLIED AT FIO2 40%, O2 SAT UP TO 94%. CALL LIGHT IN REACH.
[2018-02-09 05:11] LABS: ANION GAP 13 (6-22 (CALC)); BUN 22 mg/dL (7-17); BUN/CREATININE RATIO 37 (12-20 (CALC)); CARBON DIOXIDE 38 mmol/l (22-30); CHLORIDE 92 mmol/l (95-108); CREATININE 0.6 mg/dL (0.5-1.0); GFR > 60 ML/MIN (>=60 (CALC)); GFR FOR AFR.AMER. > 60 ML/MIN (>=60 (CALC)); MAGNESIUM 2.2 mg/dL (1.6-2.3); POTASSIUM 4.9 mmol/l (3.5-5.1); SODIUM 138 mmol/l (137-146)
[2018-02-09 05:20] LABS: HEMATOCRIT 39.2 % (37.0-47.0); HEMOGLOBIN 11.7 g/dl (12.0-16.0); MEAN CELL VOLUME 89.5 fL CALC (80.0-100.0); MEAN CORPUSCULAR HGB 26.7 pG CALC (26.0-32.0); MEAN CORPUSCULAR HGB CONC 29.8 g/L CALC (32.0-36.0); RED BLOOD COUNT 4.38 mill/uL (4.20-5.60)
--- NOTE | 2018-02-09 07:25 | NUR ---
pt resting in bed with eyes closed; easily aroused; offers no complaints; no distress noted; assessment completed at this time; pt alert and oriented; denies pain; denies sob; no n/v noted; resp even and unlabored; lungs clear/ diminished bases; skin color wnl; bipap at 16/6, rate 10, .40 FiO2; o2 sat 95%; pt converted to nc at 3l humidified/ rt informed; non food receiving clerk dry cough noted; hr reg; sr/st on monitor; strong pulses; 1+ edema noted to ble; abd soft/ distended with bs present; no bm noted per copy writer; no urine to inspect at this time; bsc; #20 in lac flushed and patent; no redness or edema noted at site; redness/discoloration noted to bilat shins; plan of care/ am meds explained; accucheck 355; call light within reach; will continue to monitor
--- NOTE | 2018-02-09 08:05 | NUR ---
awake; sitting on side of bed eating breakfast; no distress noted; o2 per nc; pt offers no complaints; st on monitor; call light within reach; will continue to monitor
--- NOTE | 2018-02-09 09:15 | NUR ---
Dr Davis at bedside to assess pt and discuss plan of care
--- NOTE | 2018-02-09 10:05 | NUR ---
awake in bed; offers no complaints; no distress noted; very talkative/ no sob noted; o2 per nc; st on monitor; call light within reach; will continue to monitor
--- NOTE | 2018-02-09 12:07 | NUR ---
pt awake in bed; offers no complaints; no distress noted; resp even and unlabored; iv intact; o2 per nc; o2 sat 93%; pt deny needs; st on monitor; call light within reach; will continue to monitor
--- NOTE | 2018-02-09 13:59 | NUR ---
resting in recliner with eyes closed; easily aroused; sr on monitor; o2 per nc; pt offers no complaints; call light within reach; will continue to monitor
--- NOTE | 2018-02-09 16:04 | NUR ---
awake in recliner; no distress noted; pt offers no complaints; iv intact; no redness or edema noted at site; sr on monitor; o2 per nc; call light within reach; will continue to monitor
--- NOTE | 2018-02-09 17:54 | NUR ---
awake in recliner; offers no complaints; iv intact; no redness or edema noted at site; st on monitor; o2 per nc; bed in lowest position; call light within reach
--- NOTE | 2018-02-09 20:00 | NUR ---
PT SITTING UP IN RECLINER AT BEDSIDE WATCHING TV. PT IS ALERT AND ORIENTED X3. PERRLA. RESP ARE EVEN AND UNLABORED. NO DISTRESS NOTED. LUNGS ARE CLEAR AND DIMINISHED IN THE BASES. O2 2L NC IN PLACE. HR REGULAR. SR TO ST ON MONITOR. PULSES PALPABLE THROUHGOUT. TRACE EDEMA TO BLE. BS ACTIVE. PT VOIDING VIA BSC. #20 LAC SALINE LOCKED. NO REDNESS OR EDEMA NOTED. CALL LIGHT IN REACH. WILL CONTINUE TO CLOSELY MONITOR.
--- NOTE | 2018-02-09 20:47 | NUR ---
DR NORMAN NOTIFIED OF BS 421. NEW ORDERS RECEIVED.
--- NOTE | 2018-02-09 22:00 | NUR ---
PT SITTING UP IN RECLINER AT BEDSIDE. RESP ARE EVEN AND UNLABORED. NO DISTRESS NOTED. PT REMAINS ON O2 3L NC. CALL LIGHT IN REACH. WILL CONTINUE TO MONITOR
--- NOTE | 2018-02-09 23:00 | NUR ---
PT ASSISTED BACK TO BED. CALL LIGHT IN REACH. WILL CONTINUE TO MONITOR
[2018-02-10] VITALS (12 sets, daily range): BP systolic 113–151; BP diastolic 61–79
--- NOTE | 2018-02-10 | NUR ---
PT RESTING IN BED WITH EYES CLOSED. RESP ARE EVEN AND UNLABORED. NO DISTRESS NOTED. PT REMAINS ON O2 3L NC. SATS REMAIN IN THE MID 90S. PT REMAINS SR TO ST ON MONITOR. CALL LIGHT IN REACH. WILL CONTINUE TO MONITOR
--- NOTE | 2018-02-10 02:00 | NUR ---
PT RESTING IN BED WITH EYES CLOSED. RESP ARE EVEN AND UNLABORED. NO DISTRESS NOTED. REMAINS ON O2 3L NC. REMAINS SR TO ST ON MONITOR. CALL LIGHT IN REACH. WILL CONTINUE TO MONITOR
--- NOTE | 2018-02-10 04:00 | NUR ---
PT RESTING IN BED WITH EYES CLOSED. RESP ARE EVEN AND UNLABORED. NO DISTRESS NOTED. PT REMAINES ON O2 3L NC. SR 90S ON MONITOR. CALL LIGHT IN REACH. WILL CONTINUE TO MONITOR
[2018-02-10 05:55] LABS: ANION GAP 17 (6-22 (CALC)); BUN 26 mg/dL (7-17); BUN/CREATININE RATIO 50 (12-20 (CALC)); CARBON DIOXIDE 32 mmol/l (22-30); CHLORIDE 90 mmol/l (95-108); CREATININE 0.5 mg/dL (0.5-1.0); GFR > 60 ML/MIN (>=60 (CALC)); GFR FOR AFR.AMER. > 60 ML/MIN (>=60 (CALC)); SODIUM 134 mmol/l (137-146)
[2018-02-10 05:56] LABS: POTASSIUM 5.3 mmol/l (3.5-5.1)
[2018-02-10 06:08] LABS: HEMATOCRIT 37.2 % (37.0-47.0); HEMOGLOBIN 11.2 g/dl (12.0-16.0); MEAN CELL VOLUME 88.6 fL CALC (80.0-100.0); MEAN CORPUSCULAR HGB 26.7 pG CALC (26.0-32.0); MEAN CORPUSCULAR HGB CONC 30.1 g/L CALC (32.0-36.0); NEUT# 9.84 thou/uL (2.00-7.15); RED BLOOD COUNT 4.2 mill/uL (4.20-5.60); RED CELL DISTRI WIDTH 18.2 % (11.5-15.5)
--- NOTE | 2018-02-10 06:24 | NUR ---
PT RESTING IN BED WITH EYES CLOSED. RESP ARE EVEN AND UNLABORED. NO DISTRESS NOTED. CALL LIGHT IN REACH. WILL CONTINUE TO MONITOR.
--- NOTE | 2018-02-10 07:35 | NUR ---
pt awake in bed; no distress noted; pt offers no complaints; assessment completed at this time; pt alert and oriented; denies pain; no n/v noted; denies sob/resp distress; resp even and unlabored; lungs clear/ diminished bases; skin color wnl; o2 per nc at 2L; supervisor dry paste cough noted; hr reg; st on monitor; strong pulses; edema noted; abd soft with bs present; no bm noted per casualty underwriter; no urine to inspect at this time; bsc; #20 in lac flushed and patent; no redness edema noted at site; redness noted to coccyx area; plan of care/ am meds explained; accucheck 302; call light within reach; will continue to monitor
--- NOTE | 2018-02-10 08:07 | NUR ---
awake up to bsc; no distress noted; iv intact; st on monitor; pt offers no complaints; deny needs; call light within reach; will continue to monitor
--- NOTE | 2018-02-10 09:40 | NUR ---
Dr Davis at bedside to assess pt and discuss plan of care
--- NOTE | 2018-02-10 10:15 | NUR ---
pt awake; up to recliner; no distress noted; sr on monitor; iv itnact; o2 per nc; pt offers no complaints; deny needs; call light within reach; will continue to monitor
--- NOTE | 2018-02-10 12:10 | NUR ---
pt awake in recliner; no distress noted; pt offers no complaints; denies pain; resp even and unlabored; sr on monitor; iv intact; call light within reach; will continue to monitor
--- NOTE | 2018-02-10 12:55 | NUR ---
pt transported to ct via wc with portable o2 in stable condition; iv intact; will continue to monitor
--- NOTE | 2018-02-10 13:11 | NUR ---
pt returned from ct scan in stable condition; all monitoring attachments explained and reconnected
--- NOTE | 2018-02-10 14:11 | NUR ---
awake in recliner; no distress noted; pt offers no complaints; iv intact; sr on monitor; call light within reach; will continue to monitor
--- NOTE | 2018-02-10 16:20 | NUR ---
awake; assisted self to recliner; no distress noted; pt offers no complaints; iv intact; sr on monitor; o2 per nc; call light within reach; will continue to monitor
--- NOTE | 2018-02-10 19:10 | NUR ---
sitting in bedside chair. denies c/o. o2 cont per nc. instructed pt about need to stop smoking. admits "i'm done when if finish smoking the last pack & a half." instructed pt she needed to quit before that. rn cardiac shows sinus rhythm. #20 lac saline lock. po fluids taken well. voids per bsc. fall precautions cont.
--- NOTE | 2018-02-10 21:00 | NUR ---
assisted to bed. denies c/o.
[2018-02-11 00:01] VITALS: BP 135/68
--- NOTE | 2018-02-11 00:01 | NUR ---
eyes closed. no distress. cardiac cath technician shows sinus rhythm.
[2018-02-11 02:00] VITALS: BP 116/63
--- NOTE | 2018-02-11 02:00 | NUR ---
resting quietly. no apparent resp distress. o2 cont.
[2018-02-11 04:00] VITALS: BP 119/74
--- NOTE | 2018-02-11 04:02 | NUR ---
awake watching tv. no resp diff.
[2018-02-11 06:00] VITALS: BP 121/71
--- NOTE | 2018-02-11 07:00 | NUR ---
PT ALERT AND ORIENTED RESTING IN BED, AM ASSESSMENT COMPLETED SEE INTERVENTIONS, PT WEARING O2 AT 3L VIA NC, (HOME O2 DEPENDENT WELL) VS STABLE ACCU CHECKC OMPLETED BS 87 NO COVERAGE REQUIRED, ABD SOFT AND BS ACTIVE, SKINW ARM DRY AND ITNACT WITH DRY REDDENED SCALY AREA NOTED IN COCCYX, AREA IS BLANCHABLE, PPPB WITH 1+ EDEMA, MUCH IMPORVED OVER THIS TECHNOLOGY APPLICATIONS CONSULTANT OBSERVATION ON DAY OF ADMISSION, IV ACCESS INTACT SALINE LOCKED, SAFETY MEASURES REINFORCED, CALL PURVIS WITHIN REACH, EASILY VISIBLE FROM NURSES STATION FOR SAFETY, ENCOURAGED TO CALL FOR ANY NEEDED ASSISTANCE.
--- NOTE | 2018-02-11 07:35 | NUR ---
SET UP ASSIST PROVIDED FOR AM MEAL, CALL PURVIS WITHIN REACH
[2018-02-11 08:00] VITALS: BP 118/69
--- NOTE | 2018-02-11 09:20 | NUR ---
PT OOB TO RECLINER AT BEDSIDE INDEPENTLY, TOLERATES ACTIVITY WELL, CALL PURVIS WITHIN REACH, OFFERS NO COMPLAINTS, WILL CONTINUE TO MONITOR.
[2018-02-11] MEDS ORDERED: IPRATROPIU0.5 MG/3 M IN (09:43)
[2018-02-11] MEDS ORDERED: METO25TAB PO (09:43)
[2018-02-11] MEDS ORDERED: MEDDOSEPAK PO (09:45)
[2018-02-11 09:59] LABS: HEMATOCRIT 40.3 % (37.0-47.0); HEMOGLOBIN 11.9 g/dl (12.0-16.0); MEAN CELL VOLUME 89.2 fL CALC (80.0-100.0); MEAN CORPUSCULAR HGB 26.3 pG CALC (26.0-32.0); MEAN CORPUSCULAR HGB CONC 29.5 g/L CALC (32.0-36.0); RED BLOOD COUNT 4.52 mill/uL (4.20-5.60)
--- NOTE | 2018-02-11 10:00 | NUR ---
INTO SEE PATIENT, PLAN OF CARE DISCUSSED INCLUDING PLANNED DISCHARGE, ALL QUESTIONS ANSWERED
[2018-02-11 10:19] LABS: ANION GAP 14 (6-22 (CALC)); BUN 20 mg/dL (7-17); BUN/CREATININE RATIO 37 (12-20 (CALC)); CARBON DIOXIDE 36 mmol/l (22-30); CHLORIDE 92 mmol/l (95-108); CREATININE 0.5 mg/dL (0.5-1.0); GFR > 60 ML/MIN (>=60 (CALC)); GFR FOR AFR.AMER. > 60 ML/MIN (>=60 (CALC)); POTASSIUM 4.6 mmol/l (3.5-5.1); SODIUM 137 mmol/l (137-146)
[2018-02-11 10:30] VITALS: BP 135/77
--- NOTE | 2018-02-11 10:34 | NUR ---
PT TALKING ON TELEPHONE WITH FRIENDS TO SECURE TRASNPORT HOME.
--- NOTE | 2018-02-11 10:50 | NUR ---
IV ACCESS REMOVED INTACT EARLIER W/O INCIDENT, AWARE OF PLANNED D/C FRIEDN EN ROUTE TO PROVIDE TRANSPORT.
--- NOTE | 2018-02-11 10:55 | NUR ---
Discharge instructions given. Patient verbalizes understanding of same. Discharged in stable condition via Wheelchair to Home with friend. All belongings sent with pt.
== END 2018-02-11 10:50 | disposition home or self-care (01) | DRG 190 ==
LOC: ED 08:00 → ED-I 08:32 → ED 11:53 → ICU 11:54
PROVIDERS: Emergency Medicine; Internal Medicine; Nurse Practitioner Family; ADMIT Internal Medicine; ATTEND Internal Medicine
PROC: 5A09357 Assistance with Respiratory Ventilation, Less than 24 Consecutive Hours, Continuous Positive Airway Pressure (ICD-10-PCS; principal; 2018-02-08)
DX: J44.1 Chronic obstructive pulmonary disease with (acute) exacerbation (principal); J96.92 Respiratory failure, unspecified with hypercapnia; E66.2 Morbid (severe) obesity with alveolar hypoventilation; I11.0 Hypertensive heart disease with heart failure; I50.9 Heart failure, unspecified; M19.90 Unspecified osteoarthritis, unspecified site; E11.9 Type 2 diabetes mellitus without complications; F17.210 Nicotine dependence, cigarettes, uncomplicated; F14.90 Cocaine use, unspecified, uncomplicated; Z79.84 Long term (current) use of oral hypoglycemic drugs
CPT/HCPCS: J3475

== ENCOUNTER 2018-02-26 20:22 | Emergency (ER) | payer OTHER ==
[~2018-02-26] VITALS: Ht 175.3 cm; Wt 116.0 kg
[~2018-02-26 20:22] MED LIST changes: +IPRATROPIU0.5 MG/3 M IN; +MEDDOSEPAK PO
[2018-02-26 21:05] LABS: HEMATOCRIT 40.3 % (37.0-47.0); HEMOGLOBIN 12.2 g/dl (12.0-16.0); IMMATURE GRANULOCYTES 0.8 % (0.0-1.0); MEAN CELL VOLUME 88.2 fL CALC (80.0-100.0); MEAN CORPUSCULAR HGB 26.7 pG CALC (26.0-32.0); MEAN CORPUSCULAR HGB CONC 30.3 g/L CALC (32.0-36.0); NEUT# 10.84 thou/uL (2.00-7.15); RED BLOOD COUNT 4.57 mill/uL (4.20-5.60); RED CELL DISTRI WIDTH 17.6 % (11.5-15.5)
[2018-02-26 21:21] LABS: ALBUMIN 3.5 g/dL (3.2-5.0); ALKALINE PHOSPHATASE 77 u/l (38-126); ANION GAP 9 (6-22 (CALC)); BILIRUBIN, TOTAL 0.3 mg/dL (0.0-1.4); BUN 10 mg/dL (7-17); BUN/CREATININE RATIO 20 (12-20 (CALC)); CARBON DIOXIDE 36 mmol/l (22-30); CHLORIDE 93 mmol/l (95-108); CREATININE 0.5 mg/dL (0.5-1.0); GFR > 60 ML/MIN (>=60 (CALC)); GFR FOR AFR.AMER. > 60 ML/MIN (>=60 (CALC)); POTASSIUM 3.7 mmol/l (3.5-5.1); SGOT/AST 12 u/l (14-36); SGPT/ALT 31 u/l (9-52); SODIUM 134 mmol/l (137-146); TOTAL PROTEIN 6.7 g/dL (6.3-8.2)
[2018-02-26 21:33] LABS: MYOGLOBIN 14 ng/mL (0 - 62)
[2018-02-26] MEDS ORDERED: MEDDOSEPAK PO (21:45)
[2018-02-26 22:02] VITALS: BP 122/66
== END 2018-02-26 22:04 | disposition home or self-care (01) | DRG 192 ==
LOC: ED 20:22
PROVIDERS: Emergency Medicine
DX: J44.1 Chronic obstructive pulmonary disease with (acute) exacerbation (principal); E11.9 Type 2 diabetes mellitus without complications; F17.210 Nicotine dependence, cigarettes, uncomplicated; R06.02 Shortness of breath; R94.31 Abnormal electrocardiogram [ECG] [EKG]

== ENCOUNTER 2018-03-08 17:05 | Emergency (ER) | payer OTHER ==
[~2018-03-08] VITALS: Ht 175.3 cm; Wt 130.0 kg
[2018-03-08] MEDS ORDERED: METOPROL TAR25 MG PO (17:58)
[2018-03-08] MEDS ORDERED: PANTOPRAZOLE SO40 MG PO (18:02)
[2018-03-08] MEDS ORDERED: VALIUM5 MG PO (18:03)
[2018-03-08 18:22] LABS: HEMATOCRIT 41.2 % (37.0-47.0); HEMOGLOBIN 12.4 g/dl (12.0-16.0); IMMATURE GRANULOCYTES 2.8 % (0.0-1.0); MEAN CELL VOLUME 86.4 fL CALC (80.0-100.0); MEAN CORPUSCULAR HGB CONC 30.1 g/L CALC (32.0-36.0); NEUT# 8.79 thou/uL (2.00-7.15); RED BLOOD COUNT 4.77 mill/uL (4.20-5.60); RED CELL DISTRI WIDTH 18.1 % (11.5-15.5)
[2018-03-08 18:31] LABS: MAGNESIUM 2.2 mg/dL (1.6-2.3)
[2018-03-08 18:32] LABS: ALBUMIN 3.4 g/dL (3.2-5.0); ALKALINE PHOSPHATASE 75 u/l (38-126); BILIRUBIN, TOTAL 0.6 mg/dL (0.0-1.4); BUN 32 mg/dL (7-17); BUN/CREATININE RATIO 48 (12-20 (CALC)); CARBON DIOXIDE 35 mmol/l (22-30); CHLORIDE 91 mmol/l (95-108); CREATININE 0.7 mg/dL (0.5-1.0); GFR > 60 ML/MIN (>=60 (CALC)); GFR FOR AFR.AMER. > 60 ML/MIN (>=60 (CALC)); SGPT/ALT 367 u/l (9-52); SODIUM 132 mmol/l (137-146); TOTAL PROTEIN 6.6 g/dL (6.3-8.2)
[2018-03-08 18:33] LABS: ANION GAP 11 (6-22 (CALC)); POTASSIUM 5.2 mmol/l (3.5-5.1); SGOT/AST 364 u/l (14-36)
[2018-03-08 18:44] LABS: MYOGLOBIN 26 ng/mL (0 - 62)
[2018-03-08 18:51] LABS: URINE BILIRUBIN - DIPSTICK NEGATIVE (NEGATIVE); URINE BLOOD DIPSTICK NEGATIVE (NEGATIVE); URINE COLOR YELLOW; URINE GLUCOSE - DIPSTICK NEGATIVE (NEGATIVE); URINE KETONE NEGATIVE (NEGATIVE); URINE NITRITE - DIPSTICK NEGATIVE (Negative); URINE PROTEIN - DIPSTICK NEGATIVE (NEG-TRACE); URINE UROBILINOGEN - DIPSTICK 0.2 E.U./dL (0.2)
[2018-03-08 18:55] LABS: BARBITURATES NEGATIVE (NEGATIVE); COCAINE NEGATIVE (NEGATIVE); METHADONE NEGATIVE (NEGATIVE); OXCYCODONE NEGATIVE (NEGATIVE); TETRAHYDROCANNABIONOL NEGATIVE (NEGATIVE); TRICYLIC ANTIDEPRESSANTS NEGATIVE (NEGATIVE); URINE CLARITY CLOUDY; URINE LEUK ESTERASE LARGE (NEGATIVE)
[2018-03-08 19:10] LABS: URINE BACTERIA FEW hpf; URINE SQUAMOUS EPITHELIAL CELL FEW EPI/hpf (0-FEW); URINE TRICHOMONAS FEW hpf; URINE WBC TNTC WBC/hpf (0-5)
[2018-03-08] MEDS ORDERED: DOXYCYCL HYC100 MG PO (19:30)
[2018-03-08] MEDS ORDERED: PREDNISONE10 MG PO (19:30)
[2018-03-08] MEDS ORDERED: METRONIDAZOL500 MG PO (19:30)
[2018-03-08 20:46] VITALS: BP 105/59
== END 2018-03-08 20:47 | disposition home or self-care (01) | DRG 192 ==
LOC: ED 17:05
PROVIDERS: Emergency Medicine
DX: J44.1 Chronic obstructive pulmonary disease with (acute) exacerbation (principal); R09.02 Hypoxemia; E11.9 Type 2 diabetes mellitus without complications; F17.210 Nicotine dependence, cigarettes, uncomplicated; A59.9 Trichomoniasis, unspecified; Z99.81 Dependence on supplemental oxygen

== ENCOUNTER 2018-03-20 16:09 | Inpatient (IN) | payer OTHER ==
[~2018-03-20] VITALS: Ht 175.3 cm; Wt 111.6 kg
[~2018-03-20 16:09] MED LIST changes: +DOXYCYCL HYC100 MG PO; +METRONIDAZOL500 MG PO
[2018-03-20 16:38] LABS: HEMATOCRIT 41.7 % (37.0-47.0); HEMOGLOBIN 12.2 g/dl (12.0-16.0); IMMATURE GRANULOCYTES 0.9 % (0.0-1.0); MEAN CELL VOLUME 85.5 fL CALC (80.0-100.0); MEAN CORPUSCULAR HGB CONC 29.3 g/L CALC (32.0-36.0); NEUT# 12.19 thou/uL (2.00-7.15); RED BLOOD COUNT 4.88 mill/uL (4.20-5.60); RED CELL DISTRI WIDTH 17.7 % (11.5-15.5)
[2018-03-20 16:56] LABS: ALBUMIN 3.6 g/dL (3.2-5.0); ALKALINE PHOSPHATASE 71 u/l (38-126); ANION GAP 11 (6-22 (CALC)); BILIRUBIN, TOTAL 0.4 mg/dL (0.0-1.4); BUN 13 mg/dL (7-17); BUN/CREATININE RATIO 24 (12-20 (CALC)); CARBON DIOXIDE 37 mmol/l (22-30); CHLORIDE 91 mmol/l (95-108); CREATININE 0.6 mg/dL (0.5-1.0); GFR > 60 ML/MIN (>=60 (CALC)); GFR FOR AFR.AMER. > 60 ML/MIN (>=60 (CALC)); POTASSIUM 4.9 mmol/l (3.5-5.1); SGPT/ALT 41 u/l (9-52); SODIUM 134 mmol/l (137-146); TOTAL PROTEIN 6.7 g/dL (6.3-8.2)
[2018-03-20 16:57] LABS: SGOT/AST 17 u/l (14-36)
[2018-03-20 18:15] VITALS: BP 149/83
[2018-03-21 00:14] VITALS: BP 125/76
[2018-03-21 04:00] VITALS: BP 143/89
[2018-03-21 08:01] VITALS: BP 118/68
[2018-03-21 11:15] VITALS: BP 111/71
[2018-03-21 15:30] VITALS: BP 104/64
[2018-03-21 19:05] VITALS: BP 97/59
[2018-03-22 00:10] VITALS: BP 131/78
[2018-03-22 04:34] VITALS: BP 113/65
[2018-03-22 05:50] LABS: HEMOGLOBIN 11.5 g/dl (12.0-16.0); IMMATURE GRANULOCYTES 1.3 % (0.0-1.0); MEAN CORPUSCULAR HGB 24.7 pG CALC (26.0-32.0); MEAN CORPUSCULAR HGB CONC 28.8 g/L CALC (32.0-36.0); NEUT# 10.02 thou/uL (2.00-7.15); RED BLOOD COUNT 4.65 mill/uL (4.20-5.60)
[2018-03-22 06:00] LABS: ANION GAP 12 (6-22 (CALC)); BUN 30 mg/dL (7-17); BUN/CREATININE RATIO 51 (12-20 (CALC)); CARBON DIOXIDE 36 mmol/l (22-30); CHLORIDE 90 mmol/l (95-108); CREATININE 0.6 mg/dL (0.5-1.0); GFR > 60 ML/MIN (>=60 (CALC)); GFR FOR AFR.AMER. > 60 ML/MIN (>=60 (CALC)); MAGNESIUM 2.1 mg/dL (1.6-2.3); SODIUM 132 mmol/l (137-146)
[2018-03-22 06:02] LABS: POTASSIUM 5.7 mmol/l (3.5-5.1)
[2018-03-22 07:38] VITALS: BP 119/65
[2018-03-22 12:00] VITALS: BP 117/70
[2018-03-22 15:11] VITALS: BP 110/58
[2018-03-22 20:00] VITALS: BP 118/55
[2018-03-23 00:17] VITALS: BP 110/63
[2018-03-23 04:30] VITALS: BP 117/68
[2018-03-23 08:40] VITALS: BP 132/72
[2018-03-23 08:44] VITALS: BP 132/72
[2018-03-23 10:44] LABS: HEMATOCRIT 39.6 % (37.0-47.0); HEMOGLOBIN 11.5 g/dl (12.0-16.0); MEAN CELL VOLUME 87.2 fL CALC (80.0-100.0); MEAN CORPUSCULAR HGB 25.3 pG CALC (26.0-32.0); RED BLOOD COUNT 4.54 mill/uL (4.20-5.60); RED CELL DISTRI WIDTH 18.2 % (11.5-15.5)
[2018-03-23 10:57] LABS: ANION GAP 17 (6-22 (CALC)); BUN 24 mg/dL (7-17); BUN/CREATININE RATIO 43 (12-20 (CALC)); CARBON DIOXIDE 32 mmol/l (22-30); CHLORIDE 88 mmol/l (95-108); CREATININE 0.6 mg/dL (0.5-1.0); GFR > 60 ML/MIN (>=60 (CALC)); GFR FOR AFR.AMER. > 60 ML/MIN (>=60 (CALC)); SODIUM 131 mmol/l (137-146)
[2018-03-23 11:10] LABS: POTASSIUM 5.5 mmol/l (3.5-5.1)
[2018-03-23] MEDS ORDERED: DOXYCYCL HYC100 MG PO (11:26)
[2018-03-23] MEDS ORDERED: PREDNISONE10 MG PO (11:29)
[2018-03-23] MEDS ORDERED: LEVEMIR FL100 UNIT/M SC (11:29)
[2018-03-23] MEDS ORDERED: BLOOD GLUCOSE TEST S XX (11:30)
== END 2018-03-23 14:46 | disposition home health service (06) | DRG 189 ==
LOC: ED 16:09 → ED-I 17:25 → ED 17:35 → MS2 17:36
PROVIDERS: Emergency Medicine; Nurse Practitioner; Nurse Practitioner Family; ADMIT Internal Medicine; ATTEND Internal Medicine
DX: J96.21 Acute and chronic respiratory failure with hypoxia (principal); J44.1 Chronic obstructive pulmonary disease with (acute) exacerbation; J96.22 Acute and chronic respiratory failure with hypercapnia; F17.210 Nicotine dependence, cigarettes, uncomplicated; E66.01 Morbid (severe) obesity due to excess calories; Z68.36 Body mass index [BMI] 36.0-36.9, adult; I10 Essential (primary) hypertension; E11.40 Type 2 diabetes mellitus with diabetic neuropathy, unspecified; G47.30 Sleep apnea, unspecified; E11.65 Type 2 diabetes mellitus with hyperglycemia; T38.0X5A Adverse effect of glucocorticoids and synthetic analogues, initial encounter; Z79.4 Long term (current) use of insulin; Z91.11 Patient's noncompliance with dietary regimen; Z99.81 Dependence on supplemental oxygen

== ENCOUNTER 2018-04-09 11:46 | Inpatient (IN) | payer OTHER ==
[~2018-04-09] VITALS: Ht 175.3 cm; Wt 110.0 kg
[2018-04-09] VITALS (11 sets, daily range): BP systolic 101–138; BP diastolic 64–84
[~2018-04-09 11:46] MED LIST changes: -GABAPENTIN300 M2 PO; +LEVEMIR FL100 UNIT/M SC
[2018-04-09 12:19] LABS: IMMATURE GRANULOCYTES 1.4 % (0.0-5.0); MEAN CELL VOLUME 85.7 fL CALC (80.0-100.0); MEAN CORPUSCULAR HGB 25.4 pG CALC (26.0-32.0); MEAN CORPUSCULAR HGB CONC 29.6 g/L CALC (32.0-36.0); NEUT# 15.65 thou/uL (2.00-7.15); RED BLOOD COUNT 5.59 mill/uL (4.20-5.60); RED CELL DISTRI WIDTH 19.3 % (11.5-15.5)
[2018-04-09 12:20] LABS: HEMATOCRIT 47.9 % (37.0-47.0); HEMOGLOBIN 14.2 g/dl (12.0-16.0)
[2018-04-09 12:35] LABS: ANION GAP 13 (6-22 (CALC)); BUN 20 mg/dL (7-17); BUN/CREATININE RATIO 46 (12-20 (CALC)); CARBON DIOXIDE 35 mmol/l (22-30); CHLORIDE 89 mmol/l (95-108); CREATININE 0.4 mg/dL (0.5-1.0); GFR > 60 ML/MIN (>=60 (CALC)); GFR FOR AFR.AMER. > 60 ML/MIN (>=60 (CALC)); POTASSIUM 4.9 mmol/l (3.5-5.1); SODIUM 132 mmol/l (137-146)
[2018-04-09] MEDS ORDERED: GABAPENTIN300 M2 PO (18:18)
[2018-04-09] MEDS ORDERED: ALBUTEROL SUL0.083 % IN (18:20)
[2018-04-09] MEDS ORDERED: METFORMIN500 MG PO (18:21)
[2018-04-09] MEDS ORDERED: LISINOPRIL2.5 MG PO (18:21)
[2018-04-09] MEDS ORDERED: METO25TAB PO (18:22)
[2018-04-09] MEDS ORDERED: SYMBICORT1 AE1 IN (18:25)
[2018-04-09] MEDS ORDERED: PROAIR HFA108 MCG/AC IN (18:25)
[2018-04-09] MEDS ORDERED: ASPIRIN81 MG PO (18:29)
[2018-04-09] MEDS ORDERED: TYLENOL325 MG PO (18:30)
[2018-04-09 19:38] LABS: URINE BILIRUBIN - DIPSTICK NEGATIVE (NEGATIVE); URINE BLOOD DIPSTICK NEGATIVE (NEGATIVE); URINE COLOR YELLOW; URINE GLUCOSE - DIPSTICK >=1000 mg/dL (NEGATIVE); URINE KETONE NEGATIVE (NEGATIVE); URINE LEUK ESTERASE NEGATIVE (NEGATIVE); URINE NITRITE - DIPSTICK NEGATIVE (Negative); URINE PROTEIN - DIPSTICK NEGATIVE (NEG-TRACE); URINE SPECIFIC GRAVITY 1.015; URINE UROBILINOGEN - DIPSTICK 0.2 E.U./dL (0.2)
[2018-04-09 19:39] LABS: URINE CLARITY CLEAR
[2018-04-10] VITALS (15 sets, daily range): BP systolic 104–144; BP diastolic 56–79
[2018-04-10 05:22] LABS: HEMATOCRIT 44.8 % (37.0-47.0); HEMOGLOBIN 13.3 g/dl (12.0-16.0); MEAN CELL VOLUME 84.5 fL CALC (80.0-100.0); MEAN CORPUSCULAR HGB 25.1 pG CALC (26.0-32.0); MEAN CORPUSCULAR HGB CONC 29.7 g/L CALC (32.0-36.0); RED BLOOD COUNT 5.3 mill/uL (4.20-5.60); RED CELL DISTRI WIDTH 18.8 % (11.5-15.5)
[2018-04-10 05:28] LABS: ANION GAP 11 (6-22 (CALC)); BUN 22 mg/dL (7-17); BUN/CREATININE RATIO 48 (12-20 (CALC)); CARBON DIOXIDE 36 mmol/l (22-30); CHLORIDE 90 mmol/l (95-108); CREATININE 0.5 mg/dL (0.5-1.0); GFR > 60 ML/MIN (>=60 (CALC)); GFR FOR AFR.AMER. > 60 ML/MIN (>=60 (CALC)); POTASSIUM 5.1 mmol/l (3.5-5.1); SODIUM 132 mmol/l (137-146)
[2018-04-11] VITALS (12 sets, daily range): BP systolic 116–159; BP diastolic 65–87
[2018-04-11 05:19] LABS: HEMATOCRIT 44.1 % (37.0-47.0); HEMOGLOBIN 13.2 g/dl (12.0-16.0); MEAN CELL VOLUME 85.6 fL CALC (80.0-100.0); MEAN CORPUSCULAR HGB 25.6 pG CALC (26.0-32.0); MEAN CORPUSCULAR HGB CONC 29.9 g/L CALC (32.0-36.0); RED BLOOD COUNT 5.15 mill/uL (4.20-5.60); RED CELL DISTRI WIDTH 19.3 % (11.5-15.5)
[2018-04-11 05:41] LABS: ANION GAP 10 (6-22 (CALC)); BUN 20 mg/dL (7-17); BUN/CREATININE RATIO 43 (12-20 (CALC)); CARBON DIOXIDE 38 mmol/l (22-30); CHLORIDE 91 mmol/l (95-108); CREATININE 0.5 mg/dL (0.5-1.0); GFR > 60 ML/MIN (>=60 (CALC)); GFR FOR AFR.AMER. > 60 ML/MIN (>=60 (CALC)); POTASSIUM 4.6 mmol/l (3.5-5.1); SODIUM 135 mmol/l (137-146)
[2018-04-11] MEDS ORDERED: PREDNISONE10 MG PO (08:33)
[2018-04-11] MEDS ORDERED: JANUVIA100 MG PO (08:33)
== END 2018-04-11 16:16 | disposition home or self-care (01) | DRG 189 ==
LOC: ED 11:46 → ED-I 13:08 → ED 13:17 → ICU 13:17
PROVIDERS: Family Medicine; ADMIT Internal Medicine; ATTEND Internal Medicine
PROC: 5A09357 Assistance with Respiratory Ventilation, Less than 24 Consecutive Hours, Continuous Positive Airway Pressure (ICD-10-PCS; principal; 2018-04-09)
DX: J96.22 Acute and chronic respiratory failure with hypercapnia (principal); J44.1 Chronic obstructive pulmonary disease with (acute) exacerbation; J96.21 Acute and chronic respiratory failure with hypoxia; I10 Essential (primary) hypertension; G47.33 Obstructive sleep apnea (adult) (pediatric); E11.65 Type 2 diabetes mellitus with hyperglycemia; E11.40 Type 2 diabetes mellitus with diabetic neuropathy, unspecified; F17.210 Nicotine dependence, cigarettes, uncomplicated; G89.29 Other chronic pain; Z99.81 Dependence on supplemental oxygen; Z91.19 Patient's noncompliance with other medical treatment and regimen; Z79.84 Long term (current) use of oral hypoglycemic drugs
CPT/HCPCS: J1650

== ENCOUNTER 2018-04-23 15:43 | Observation (INO) | payer OTHER ==
[~2018-04-23] VITALS: Ht 175.3 cm; Wt 109.0 kg
[~2018-04-23 15:43] MED LIST changes: +ALBUTEROL SUL0.083 % IN; +ASPIRIN81 MG PO; +GABAPENTIN300 M2 PO; +JANUVIA100 MG PO; +PROAIR HFA108 MCG/AC IN; +TYLENOL325 MG PO
--- NOTE | 2018-04-23 15:49 | NUR ---
PT ARRIVES BY EMS, SHORTNESS OF BREATH.
--- NOTE | 2018-04-23 15:57 | NUR ---
PT STATES THAT SHE HAS HAD INCREASE IN SOB THROUGHOUT THE DAY. PT HAS WHEEZING IN ALL DAVIS. PT IS AOX4. PT DENIES ANY CP, N/V OR WEAKNESS. PT HAS CELLULITIS TO BOTH LOWER EXTREMITES THAT STARTED TWO DAYS AGO. PT TOOK NEB TX THIS MORNIGN BUT DID NOT HELP ANY. FRIEND AT BEDSIDE.
[2018-04-23] MEDS ORDERED: PANTOPRAZOLE SO40 MG PO (16:03)
[2018-04-23 16:29] LABS: HEMATOCRIT 42.7 % (37.0-47.0); HEMOGLOBIN 12.9 g/dl (12.0-16.0); IMMATURE GRANULOCYTES 1.1 % (0.0-5.0); MEAN CELL VOLUME 86.4 fL CALC (80.0-100.0); MEAN CORPUSCULAR HGB 26.1 pG CALC (26.0-32.0); MEAN CORPUSCULAR HGB CONC 30.2 g/L CALC (32.0-36.0); NEUT# 6.11 thou/uL (2.00-7.15); RED BLOOD COUNT 4.94 mill/uL (4.20-5.60); RED CELL DISTRI WIDTH 19.5 % (11.5-15.5)
[2018-04-23 16:34] LABS: URINE BILIRUBIN - DIPSTICK NEGATIVE (NEGATIVE); URINE BLOOD DIPSTICK NEGATIVE (NEGATIVE); URINE COLOR YELLOW; URINE GLUCOSE - DIPSTICK >=1000 mg/dL (NEGATIVE); URINE KETONE NEGATIVE (NEGATIVE); URINE LEUK ESTERASE NEGATIVE (NEGATIVE); URINE PH 5.5 (4.5-8.0); URINE PROTEIN - DIPSTICK NEGATIVE (NEG-TRACE); URINE UROBILINOGEN - DIPSTICK 0.2 E.U./dL (0.2)
[2018-04-23 16:39] LABS: URINE CLARITY CLEAR; URINE NITRITE - DIPSTICK POSITIVE (Negative)
[2018-04-23 16:44] LABS: ALBUMIN 3.4 g/dL (3.2-5.0); ALKALINE PHOSPHATASE 84 u/l (38-126); ANION GAP 11 (6-22 (CALC)); BILIRUBIN, TOTAL 0.4 mg/dL (0.0-1.4); BUN 9 mg/dL (8-23); BUN/CREATININE RATIO 19 (12-20 (CALC)); CARBON DIOXIDE 33 mmol/l (22-30); CHLORIDE 94 mmol/l (95-108); CREATININE 0.5 mg/dL (0.5-1.0); GFR > 60 ML/MIN (>=60 (CALC)); GFR FOR AFR.AMER. > 60 ML/MIN (>=60 (CALC)); POTASSIUM 4.5 mmol/l (3.5-5.1); SGOT/AST 12 u/l (9-36); SGPT/ALT 35 u/l (11-66); SODIUM 134 mmol/l (137-146); TOTAL PROTEIN 5.9 g/dL (6.3-8.2)
--- NOTE | 2018-04-23 16:48 | NUR ---
PT RESTING ON STRETCHER, STATES BREATHING HAS SLIGHTLY IMPROVED
[2018-04-23 16:50] LABS: URINE BACTERIA FEW hpf; URINE RBC 0-2 RBC/hpf (0-5); URINE SQUAMOUS EPITHELIAL CELL FEW EPI/hpf (0-FEW); URINE WBC 0-2 WBC/hpf (0-5)
--- NOTE | 2018-04-23 17:23 | NUR ---
RT AT BEDSIDE WITH BIPAP MACHINE
--- NOTE | 2018-04-23 18:23 | NUR ---
PT ASLEEP ON STRETCHER
--- NOTE | 2018-04-23 18:50 | NUR ---
REPORT GIVEN TO ZION RN- ACCEPTED PT
--- NOTE | 2018-04-23 19:09 | NUR ---
AWAITING RESPIRATORY TO BE FREED UP FROM CASE BEFORE TRANSPORT TO ICU, PT IS ON BI-PAP. ADVISED ICU OF CURRENT SITUATION.
--- NOTE | 2018-04-23 19:19 | NUR ---
REPORT RECIEVED FROM MARTINEZ RN, PT AWAITING TRANSPORT TO ICU. RESPIRATORY WILL ADVISE WHEN FREED UP FROM SITUATION FOR BI-PAP.
--- NOTE | 2018-04-23 21:25 | NUR ---
Admission Note Report Given to: Stacy Transported by: Wheelchair x Stretcher Transported with: x Nurse Transporter x Patent IV x O2 x Heating And Cooling Technician Bi-pap taken with pt.
[2018-04-23 21:30] VITALS: BP 124/71
--- NOTE | 2018-04-23 21:30 | NUR ---
RECEIVED FROM ER VIA STRETCHER ACCOMPANIED BY ER NURSE NEHA, AMBULATING TO BED WITH STEADY GAIT, ON O2 @3L VIA NC AT THIS TIME, O2 SAT 93%, RESP 22. ADMITS TO BECOMING INCREASINGLY SOB TODAY AND CALLED EMS. LUNG SOUNDS WHEEZY. DENIES PAIN OR DISCOMFORT, BIPAP AT BED SIDE. EMS SITE TO LFA FLUSHED WITH SALINE, FLUSHES WELL. HEART MONITOR READING ST 106. LOWER EXTREMITIES ARE REDDENED WITH +2 PITTING EDEMA, REFUSES CLAUDIA HOSE. PO FLUIDS IN REACH. ACCUCHECK READING HI OUT OF RANGE, GLUCOSE DRAWN BY CONCRETE SPREADER, TOLERATED WELL. ENCOURAGED TO USE CALL LIGHT FOR ASSISTANCE, WILL CONTINUE TO MONITOR.
[2018-04-23 21:45] VITALS: BP 104/82
[2018-04-23 22:00] VITALS: BP 115/75
[2018-04-23 22:15] VITALS: BP 118/75
--- NOTE | 2018-04-23 22:20 | NUR ---
GLUCOSE 480, DR. CARMONA NOTIFIED, NEW ORDER RECEIVED FOR 10UNITS OF NOVULOG INSULIN SQ, ADMINISTERED AT 2306, TOLERATED WELL.
[2018-04-23 23:00] VITALS: BP 122/76
[2018-04-24] VITALS (9 sets, daily range): BP systolic 113–136; BP diastolic 66–76
--- NOTE | 2018-04-24 | NUR ---
RESTING IN BED WITH EYES CLOSED, RESPIRATIONS EVEN AND UNLABORED ON O2 @3L VIA NC, O2 SAT 93%. REFUSES BIPAP.
--- NOTE | 2018-04-24 02:20 | NUR ---
RESTING IN SEMIFOWLERS WITH EYES CLOSED, RESPIRATIONS EVEN AND UNLABORED ON O2 @3L VIA NC, O2 SAT 94%. CALL LIGHT IN REACH.
--- NOTE | 2018-04-24 03:22 | NUR ---
OOB TO BSC, VOIDING 400ML OF CLEAR YELLOW URINE THEN BACK TO BED. RESPIRATIONS EVEN AND UNLABORED ON O2 @2L VIA NC, O2 SAT 91%.
--- NOTE | 2018-04-24 04:50 | NUR ---
MORNING LABS DRAWN BY PASTA PRESS OPERATOR, PT TOLERATED WELL.
[2018-04-24 05:12] LABS: MEAN CELL VOLUME 86.2 fL CALC (80.0-100.0); MEAN CORPUSCULAR HGB 26.1 pG CALC (26.0-32.0); MEAN CORPUSCULAR HGB CONC 30.2 g/L CALC (32.0-36.0); RED BLOOD COUNT 4.99 mill/uL (4.20-5.60); RED CELL DISTRI WIDTH 19.3 % (11.5-15.5)
[2018-04-24 05:29] LABS: ANION GAP 11 (6-22 (CALC)); BUN 15 mg/dL (8-23); BUN/CREATININE RATIO 35 (12-20 (CALC)); CARBON DIOXIDE 35 mmol/l (22-30); CHLORIDE 95 mmol/l (95-108); CREATININE 0.4 mg/dL (0.5-1.0); GFR > 60 ML/MIN (>=60 (CALC)); GFR FOR AFR.AMER. > 60 ML/MIN (>=60 (CALC)); POTASSIUM 5.1 mmol/l (3.5-5.1); SODIUM 137 mmol/l (137-146)
--- NOTE | 2018-04-24 07:03 | NUR ---
RECVD REPORT FROM EASTON DONOVAN. INTRODUCED SELF TO PT. PT UP TO BSC. WILL RETURN LATER FOR ASSESSMENT
--- NOTE | 2018-04-24 07:44 | NUR ---
PT SITTING UP IN BED. MADE RACIAL REMARKS RE:TELECOM ANALYST. PT STATES SHE "IS A BIGGOT" AND "POOR WHITE TRASH" WITH A SMILE ON HER FACE. RIGHT LUNGS CLEAR, UNABLE TO ASCULATE LEFT LUNG. PT STATES IT COLLAPSED WHEN SHE WAS 26. NO EDEMA NOTED. STRONG PULSES. PT STATES SHE IS READY TO GO HOME BC SHE HAS FAMILY WHO DROVE 1500 MILES TO SEE HER AND THEY ARE OLD SO SHE SHOULD BE THERE WITH THEM. PT ALSO STATES "US PEOPLE TREATED TO PUT HER IN A ALF IF SHE HAS ANY MORE BLACKOUT SPELLS AND SHE'D RATHER THAN GO TO ONE OF THOSE HELL HOLES". BREAKFAST TRAY SERVED.
--- NOTE | 2018-04-24 08:48 | NUR ---
DR CARMONA @BEDSIDE. PT STATES SHE HAS DR APPOINTMENT WITH "LUNG DR" TOMORROW & CANT MISS IT. PT STATES SHE IS MOVING TO [place] WITH HER SON ON THE . DR WILL REQUEST PHARM COME EDUCATE PT ON MEDICATIONS.
--- NOTE | 2018-04-24 10:10 | NUR ---
SAFETY DEPOSIT CLERK @BEDSIDE.
--- NOTE | 2018-04-24 10:48 | NUR ---
PT EQUIPMENT RECORDS SUPERVISOR YANIV. PT STATES "SHE WANTS THAT ABX SO SHE CAN GO HOME". EXPLAINED TO PT THAT PHARMACY NEEDS TO BRING UP MEDICATION & WE ARE STILL WAITING ON DC ORDERS.
--- NOTE | 2018-04-24 11:54 | NUR ---
PT GIVEN LUNCH TRAY & MEDICATED. PT ANXIOUS TO GET HOME. TELLING FAMILY MEMBERS TO COME GET HER.
--- NOTE | 2018-04-24 12:05 | NUR ---
ZULEIMA, CASE MANAGEMENT @BEDSIDE W/PT.
--- NOTE | 2018-04-24 12:26 | NUR ---
ROQUE @BEDSIDE WITH PT. PT YELLING OUT "TAKE THIS IV OUT MY ARM". EXPLAINED TO PT THAT WE WILL REMOVE IV BEFORE SHE GOES HOME, AFTER WE GET DC ORDERS.
[2018-04-24] MEDS ORDERED: JANUVIA100 MG PO (12:33)
[2018-04-24] MEDS ORDERED: PREDNISONE10 MG PO (12:35)
[2018-04-24] MEDS ORDERED: KEFLEX500 MG PO (12:35)
--- NOTE | 2018-04-24 12:41 | NUR ---
PT CONCERNED BC SHE STATES SHE CAME IN TO OUR ER WITH A CLEAR TUB OF HOME MEDICATIONS BUT SHE DOES NOT HAVE THE TUB AT THIS TIME. PT STATES AUNT WAS WITH HER IN ER. NEITHER ER, NOR PHARMACY, HAVE MEDICINE TUB. PT CALLING HOME TO SEE IF THEY HAVE TUB.
--- NOTE | 2018-04-24 12:54 | NUR ---
PT "ACCIDENTALLY" PULLED OUT HER IV WHILE ON THE BSC. PRESSURE DRESSING APPLIED.
--- NOTE | 2018-04-24 13:11 | NUR ---
PT EDUCATED ON DX & RX x2. PT AGREES TO STOP SMOKING AND KEEP APPT TOMORROW WITH PULMOLOGIST. PT STATES SHE DOESNT HAVE CLOTHES SO SHE WILL HAVE TO GO HOME IN OUR GOWN. VOLUNTEER TAKING PT DOWN IN WC @[id number].
== END 2018-04-24 13:15 | disposition home or self-care (01) ==
LOC: ED 15:43 → ED-I 17:13 → ED 17:58 → ICU 17:59
PROVIDERS: Emergency Medicine; ADMIT Internal Medicine; ATTEND Internal Medicine
DX: J96.22 Acute and chronic respiratory failure with hypercapnia (principal); J96.21 Acute and chronic respiratory failure with hypoxia; E66.2 Morbid (severe) obesity with alveolar hypoventilation; E11.65 Type 2 diabetes mellitus with hyperglycemia; J44.9 Chronic obstructive pulmonary disease, unspecified; I10 Essential (primary) hypertension; F17.210 Nicotine dependence, cigarettes, uncomplicated; G47.33 Obstructive sleep apnea (adult) (pediatric); R60.0 Localized edema; N39.0 Urinary tract infection, site not specified; M54.5 Low back pain; G89.29 Other chronic pain; T38.0X5A Adverse effect of glucocorticoids and synthetic analogues, initial encounter; B96.1 Klebsiella pneumoniae [K. pneumoniae] as the cause of diseases classified elsewhere; Z91.14 Patient's other noncompliance with medication regimen; Z99.81 Dependence on supplemental oxygen; Z68.35 Body mass index [BMI] 35.0-35.9, adult; Z79.84 Long term (current) use of oral hypoglycemic drugs